=== PATIENT | male | born 1970 | race Caucasian/White ===

== ENCOUNTER 2017-10-02 11:30 | Emergency (ER) | payer OTHER ==
[~2017-10-02] VITALS: Ht 182.9 cm; Wt 100.0 kg
[2017-10-02 11:36] VITALS: BP 152/86; PULSE 119; RESP 18; TEMP 97.6; O2SAT 98
--- NOTE | 2017-10-02 12:00 | PD ---
HPI Chief Complaint: Musculoskeletal Complaint Time Seen by Provider: 11:45 Travel History International Travel<30 days: No Contact w/Intl Traveler<30days: No Traveled to known affect area: No History of Present Illness HPI 47yo M with PMH of right hip surgery in May 2017 here with right inner thigh spasm and pain for 2 days. Said 2 days ago, he was lifting wood for fire place and may have overexerted himself. He flew from [place] to [place] 2 days ago. Said right leg seemed a little bigger than left. Denies any fever, chest pain , sob, n/v, abdominal pain, focal weakness or fall. Feels right anterior thigh is more numb. PFSH Social History Tobacco Use: No Allergies-Medications (Allergen,Severity, Reaction): Coded Allergies: No Known Allergies (Unverified , 10/02/17) Reported Meds & Prescriptions Reported Meds & Active Scripts Active No Active Prescriptions or Reported Medications Review of Systems Except as stated in HPI: all other systems reviewed are Neg Physical Exam Narrative GENERAL: 47yo M in mild distress. SKIN: Focused skin assessment warm/dry. HEAD: Atraumatic. Normocephalic. EYES: Pupils equal and round. No scleral icterus. No injection or drainage. ENT: No nasal bleeding or discharge. Mucous membranes pink and moist. NECK: Trachea midline. No JVD. CARDIOVASCULAR: Tachycardic at triage. No murmur appreciated. RESPIRATORY: No accessory muscle use. Clear to auscultation. Breath sounds equal bilaterally. GASTROINTESTINAL: Abdomen soft, non-tender, nondistended. No rebound tenderness or guarding. MUSCULOSKELETAL: Right hip: Incision site is clean, nonerythematous and nontender to palpation. +Involuntary spasm right medial thigh. Decreased sensation right anterior thigh. Distal pulses intact. FROM right hip. NEUROLOGICAL: Awake and alert. No obvious cranial nerve deficits. Motor grossly within normal limits. Normal speech. PSYCHIATRIC: Appropriate mood and affect; insight and judgment normal. Data Data Last Documented VS Vital Signs Date Time Temp Pulse Resp B/P (MAP) Pulse Ox O2 Delivery O2 Flow Rate FiO2 10/02/17 13:54 102 18 117/81 (93) 96 10/02/17 11:36 97.6 Orders Orders Magnesium (Mg) (10/02/17 11:53) Comprehensive Metabolic Panel (10/02/17 11:53) Us Leg Venous Doppler (10/02/17 ) Diazepam (Valium) (10/02/17 12:15) Ibuprofen (Motrin) (10/02/17 12:15) Ed Discharge Order (10/02/17 13:53) Labs Laboratory Tests Test 10/02/17 12:10 Blood Urea Nitrogen 6 MG/DL Creatinine 1.06 MG/DL Random Glucose 160 MG/DL Total Protein 7.7 GM/DL Albumin 3.9 GM/DL Calcium Level 8.5 MG/DL Magnesium Level 2.0 MG/DL Alkaline Phosphatase 121 U/L Aspartate Amino Transf (AST/SGOT) 94 U/L Alanine Aminotransferase (ALT/SGPT) 71 U/L Total Bilirubin 1.8 MG/DL Sodium Level 137 MEQ/L Potassium Level 3.4 MEQ/L Chloride Level 102 MEQ/L Carbon Dioxide Level 28.6 MEQ/L Anion Gap 6 MEQ/L Estimat Glomerular Filtration Rate 74 ML/MIN MDM Medical Decision Making Medical Screen Exam Complete: Yes Emergency Medical Condition: Yes Differential Diagnosis Muscle strain vs. DVT vs. electrolyte abnormality Narrative Course 47yo M with muscle spasm of right inner thigh for 2 days. Pt states his right leg is more swollen than left but I was not really able to appreciate that. Pt did have a recent flight 2 days ago. Pain and muscle spasm started after lifting wood so I feel this is more musculoskeletal but will check electrolytes and US right lower extremity to r/o DVT. Denies any fall or trauma to hip. Labs reviewed, K is 3.4, pt can replace orally. Magnesium and calcium normal. Bilirubin is mildly elevated at 1.8, may be dehydrated. Pt has no abdominal pain, vomiting or diarrhea. Pt given valium and ibuprofen and reevaluated at bedside. Pt feels much better and spasm has resolved. Repeat HR 102bpm. Pt wants to go home. Denies any chest pain or sob. US showed no DVT. Return precautions given. Diagnosis Primary Impression: Muscle spasm Patient Instructions: General Instructions Departure Forms: Tests/Procedures Additional Instructions: Please follow up with your primary care physician in 2-3 days. Please keep hydrated. Return to the ED if symptoms worsen. Med/Other Pt SpecificInfo: No Change to Meds Scripts No Active Prescriptions or Reported Meds Disposition: 01 DISCHARGE HOME Condition: Stable Lucila Botello Oct 02, 2017 11:59
[2017-10-02] MEDS ORDERED: DIAZEPAM 5 MG TAB PO ONE (12:15)
[2017-10-02] MEDS ORDERED: IBUPROFEN 600 MG TAB PO ONE (12:15)
[2017-10-02 13:14] LABS: ALBUMIN 3.9 GM/DL (3.4-5.0); ALT (GPT) 71 U/L (12-78); AST (GOT) 94 U/L (15-37); BICARBONATE 28.6 MEQ/L (21.0-32.0); BLOOD UREA NITROGEN 6 MG/DL (7-18); CALCIUM 8.5 MG/DL (8.5-10.1); CHLORIDE 102 MEQ/L (98-107); CREATININE 1.06 MG/DL (0.60-1.30); GLOMERULAR FILTRATION RATE 74 ML/MIN (>89); GLUCOSE,RANDOM 160 MG/DL (74-106); SODIUM (NA) 137 MEQ/L (136-145)
[2017-10-02 13:16] LABS: ALKALINE PHOSPHATASE 121 U/L (45-117); TOTAL BILIRUBIN ADULT 1.8 MG/DL (0.2-1.0); TOTAL PROTEIN 7.7 GM/DL (6.4-8.2)
--- NOTE | 2017-10-02 13:19 | RADRPT ---
EXAM DATE/TIME: 10/02/2017 12:47 [facility] COMPARISON: No previous studies available for comparison. INDICATIONS : Right leg swelling. MEDICAL HISTORY : Alcohol use. SURGICAL HISTORY : Right hip surgery. ENCOUNTER: Initial ACUITY: 1 day PAIN SCORE: 3/10 LOCATION: Right leg. TECHNIQUE: Venous ultrasound of the leg was performed from the inguinal ligament to the proximal calf. Real-gwen e, color Doppler and spectral tracing, compression and augmentation techniques were used. FINDINGS: There is normal compressibility of the deep venous system from the inguinal region to the proximal ca lf. No echogenic clot is seen in the lumen of the common femoral, femoral, popliteal, and posterior tibial veins. There is a normal response of the venous system to proximal and distal augmentation an d respiration. CONCLUSION: Normal examination. Endy Centeno MD on October 02, 2017 at 13:17 Board Certified Radiologist. This report was verified electronically.
[2017-10-02 13:54] VITALS: BP 117/81
== END 2017-10-02 14:03 | disposition home or self-care (01) ==
LOC: NEPD 11:30
DX: M62.838 Other muscle spasm (principal); M79.89 Other specified soft tissue disorders
CPT/HCPCS: 80053; 83735; 93971; 99284